=== PATIENT | female | born 1960 | race Caucasian/White ===

== ENCOUNTER 2016-12-17 12:00 | Emergency (ER) | payer OTHER ==
[~2016-12-17] VITALS: Ht 157.5 cm; Wt 136.3 kg
[~2016-12-17 12:00] MED LIST: ACCURETIC 201 TABLE1 PO; AMLODIPINE BESYL5 MG PO; BACTRIM,SEPT1 TABLET PO; CEFDINIR300 MG PO; CEPHALEXIN500 MG PO; CITALOPRAM; CITALOPRAM HBR20 MG PO; Colace PO; DEPAKOTE; DEPAKOTE ER500 MG PO; DEPAKOTE500 MG PO; DIVALPROEX SOD500 M1 PO; DUONEB 2.5-0.5 M3 ML AEROSOL; DYNAPEN 250 MG250 MG PO; Dulcolax PR; FUROSEMIDE20 MG PO; FUROSEMIDE40 MG PO; Folvite PO; HYDROCHLOROTHIA25 MG PO; HYDRODIURIL PO; IODOFLEX1 EACH TP; KEFLEX500 MG PO; LASIX; LASIX20 MG PO; LASIX40 MG PO; LIPITOR20 MG PO; LISINOPRIL10 MG PO; LISINOPRIL20 MG PO; LOPRESSOR50 MG PO; LOVENOX30 MG/0.3 SC; Levaquin PO; METFORMIN HCL500 MG PO; METOPROLOL; MS CONTIN,ORAMO15 M1 PO; Milk Of Magnesia,MOM PO; NOHOMEMEDS; NYSTATIN15 GM TP; OXYCODONE HCL10 MG PO; OXYCODONE HCL5 MG PO; OxyCONTIN PO; PROZAC40 MG PO; Percocet 5/325,Endoc PO; RISPERDAL; RISPERDAL0.5 MG PO; RISPERDAL1 MG PO; RISPERIDAL; RISPERIDONE0.5 MG PO; TOPROL XL100 MG PO; TOPROL XL6.25 MG PO; TRAMADOL HCL50 MG PO; TRAZODONE HCL50 MG PO; ZOLPIDEM TARTRAT5 MG PO; [UNRECOGNIZED DRUG - REMARK] PO
[2016-12-17 13:01] LABS: EOSINOPHIL (%) 2.4 % (0-5); EOSINOPHIL COUNT 0.2 K/uL (0-0.3); HEMATOCRIT 40.4 % (36.0-46.0); IMMATURE GRANULOCYTE (%) 0.4 % (0.0-0.7); LYMPHOCYTE COUNT 1.7 K/uL (1.0-2.8); MCH 26.5 PG (29.0-34.0); MCHC 31.4 G/DL (30.0-36.0); MCV 84.3 FL (83-99); MEAN PLAT.VOLUME 9.9 uM^3 (9.5-12.4); MONOCYTE COUNT 0.6 K/uL (0-0.8); PLATELET COUNT 292 K/uL (156-360); RBC DIS.WIDTH-CV 15.2 % (11.8-14.6); RBC DIS.WIDTH-SD 46.3 % (39-53); RED BLOOD COUNT 4.79 M/uL (3.80-5.20); WHITE BLOOD COUNT 7.5 K/uL (4.1-10.2)
[2016-12-17 13:10] LABS: CHLORIDE 103 mEq/L (99-109); POTASSIUM 4.2 mEq/L (3.7-5.4); SODIUM 141 mEq/L (136-147)
[2016-12-17 13:12] LABS: GLUCOSE 140 mg/dL (70-99)
[2016-12-17 13:13] LABS: ANION GAP 10 MEQ/L (2-14)
[2016-12-17 13:16] LABS: GFR ESTIMATE (CALCULATED) 41 mL/min/
[2016-12-17 13:17] LABS: UREA NITROGEN (BUN) 44 mg/dL (9-23)
[2016-12-17 13:23] LABS: TROP-I INTERPRETATION NEGATIVE; TROPONIN-I 0.02 ng/mL (0.0-0.30)
[2016-12-17 16:04] VITALS: BP 120/80
== END 2016-12-17 16:28 | disposition home or self-care (01) ==
LOC: EME 12:00
PROVIDERS: Emergency Medicine
DX: R00.2 Palpitations (principal); E86.0 Dehydration; R00.0 Tachycardia, unspecified; I10 Essential (primary) hypertension; E78.5 Hyperlipidemia, unspecified; I50.9 Heart failure, unspecified; E11.9 Type 2 diabetes mellitus without complications; Z79.84 Long term (current) use of oral hypoglycemic drugs
CPT/HCPCS: 71010; 71275; 80048; 84443; 84484; 85025; 85379; 93005; 99281; 99285

== ENCOUNTER 2017-06-03 13:54 | Emergency (ER) | payer OTHER ==
[~2017-06-03] VITALS: Ht 160 cm; Wt 137.0 kg
[2017-06-03 17:16] LABS: HEMATOCRIT 40.7 % (36.0-46.0); HEMOGLOBIN 13.1 G/DL (11.9-15.5); MCH 27.2 PG (29.0-34.0); MCHC 32.2 G/DL (30.0-36.0); MCV 84.6 FL (83-99); PLATELET COUNT 295 K/uL (156-360); RBC DIS.WIDTH-CV 14.9 % (11.8-14.6); RBC DIS.WIDTH-SD 46.2 % (39-53); RED BLOOD COUNT 4.81 M/uL (3.80-5.20); WHITE BLOOD COUNT 7.3 K/uL (4.1-10.2)
[2017-06-03 17:26] LABS: CHLORIDE 106 mEq/L (99-109); POTASSIUM 4.4 mEq/L (3.7-5.4); SODIUM 139 mEq/L (136-147)
[2017-06-03 17:28] LABS: GLUCOSE 195 mg/dL (70-99)
[2017-06-03 17:32] LABS: CREATININE 1.3 mg/dL (0.6-1.3); GFR ESTIMATE (CALCULATED) 45 mL/min/
[2017-06-03 17:33] LABS: UREA NITROGEN (BUN) 27 mg/dL (9-23)
[2017-06-03 19:35] VITALS: BP 173/114
== END 2017-06-03 19:45 | disposition home or self-care (01) ==
LOC: EME 13:54 → WOUND 13:54 → EME 19:45
PROVIDERS: Emergency Medicine; Surgery Plastic and Reconstructive Surgery
DX: I11.0 Hypertensive heart disease with heart failure (principal); I50.9 Heart failure, unspecified; E78.5 Hyperlipidemia, unspecified; E11.9 Type 2 diabetes mellitus without complications; I89.0 Lymphedema, not elsewhere classified; G47.30 Sleep apnea, unspecified; F31.9 Bipolar disorder, unspecified; F41.9 Anxiety disorder, unspecified; F32.9 Major depressive disorder, single episode, unspecified; Z79.84 Long term (current) use of oral hypoglycemic drugs
CPT/HCPCS: 80048; 82948; 85027; 99212; 99281; 99285

== ENCOUNTER 2017-06-03 13:54 | Emergency (ER) | payer OTHER ==
[~2017-06-03] VITALS: Ht 160 cm; Wt 137.0 kg
[2017-06-03 17:16] LABS: HEMATOCRIT 40.7 % (36.0-46.0); HEMOGLOBIN 13.1 G/DL (11.9-15.5); MCH 27.2 PG (29.0-34.0); MCHC 32.2 G/DL (30.0-36.0); MCV 84.6 FL (83-99); PLATELET COUNT 295 K/uL (156-360); RBC DIS.WIDTH-CV 14.9 % (11.8-14.6); RBC DIS.WIDTH-SD 46.2 % (39-53); RED BLOOD COUNT 4.81 M/uL (3.80-5.20); WHITE BLOOD COUNT 7.3 K/uL (4.1-10.2)
[2017-06-03 17:26] LABS: CHLORIDE 106 mEq/L (99-109); POTASSIUM 4.4 mEq/L (3.7-5.4); SODIUM 139 mEq/L (136-147)
[2017-06-03 17:28] LABS: GLUCOSE 195 mg/dL (70-99)
[2017-06-03 17:32] LABS: CREATININE 1.3 mg/dL (0.6-1.3); GFR ESTIMATE (CALCULATED) 45 mL/min/
[2017-06-03 17:33] LABS: UREA NITROGEN (BUN) 27 mg/dL (9-23)
== END 2017-06-03 19:45 | disposition home or self-care (01) ==
LOC: EME 13:54
PROVIDERS: Emergency Medicine; Surgery Plastic and Reconstructive Surgery
DX: I11.0 Hypertensive heart disease with heart failure (principal); I50.9 Heart failure, unspecified; E11.9 Type 2 diabetes mellitus without complications; Z79.84 Long term (current) use of oral hypoglycemic drugs; E78.5 Hyperlipidemia, unspecified; F32.9 Major depressive disorder, single episode, unspecified; F41.9 Anxiety disorder, unspecified; G47.30 Sleep apnea, unspecified
CPT/HCPCS: 80048; 82948; 85027; 99281; 99285

== ENCOUNTER 2017-09-18 15:15 | Emergency (ER) | payer OTHER ==
[~2017-09-18] VITALS: Ht 160 cm; Wt 154.4 kg
[2017-09-18 18:58] VITALS: BP 151/99
== END 2017-09-18 19:13 | disposition home or self-care (01) ==
LOC: EME 15:15
DX: R04.0 Epistaxis (principal); E11.9 Type 2 diabetes mellitus without complications; I11.0 Hypertensive heart disease with heart failure; I50.9 Heart failure, unspecified; G47.30 Sleep apnea, unspecified; E78.5 Hyperlipidemia, unspecified; F31.9 Bipolar disorder, unspecified; F41.9 Anxiety disorder, unspecified; F32.9 Major depressive disorder, single episode, unspecified; Z79.84 Long term (current) use of oral hypoglycemic drugs
CPT/HCPCS: 99281; 99284

== ENCOUNTER 2017-12-03 14:50 | Inpatient (IN) | payer OTHER ==
[~2017-12-03] VITALS: Ht 157.5 cm; Wt 136.2 kg
[~2017-12-03 14:50] MED LIST changes: +LOPRESSOR100 M1 PO; -TOPROL XL100 MG PO
[2017-12-03] MEDS ORDERED: ALEVE220 MG PO (16:31)
[2017-12-03] MEDS ORDERED: LEXAPRO10 MG PO (16:31)
[2017-12-03] MEDS ORDERED: TRAZODONE HCL50 MG PO (16:32)
[2017-12-03 16:40] LABS: BASOPHIL (%) 0.5 % (0-1); EOSINOPHIL (%) 3.7 % (0-5); EOSINOPHIL COUNT 0.3 K/uL (0-0.3); HEMATOCRIT 38.5 % (36.0-46.0); IMMATURE GRANULOCYTE (%) 0.5 % (0.0-0.7); LYMPHOCYTE (%) 14.3 % (15-42); LYMPHOCYTE COUNT 1.2 K/uL (1.0-2.8); MCH 25.9 PG (29.0-34.0); MCHC 31.2 G/DL (30.0-36.0); MONOCYTE (%) 9.2 % (3-12); MONOCYTE COUNT 0.8 K/uL (0-0.8); NEUTROPHIL (%) 71.8 % (45-76); NEUTROPHIL COUNT 6.3 K/uL (1.8-6.4); PLATELET COUNT 291 K/uL (156-360); RBC DIS.WIDTH-CV 16.3 % (11.8-14.6); RBC DIS.WIDTH-SD 49.1 % (39-53); RED BLOOD COUNT 4.64 M/uL (3.80-5.20); WHITE BLOOD COUNT 8.7 K/uL (4.1-10.2)
[2017-12-03 16:48] LABS: CHLORIDE 107 mEq/L (99-109); POTASSIUM 3.8 mEq/L (3.7-5.4); SODIUM 140 mEq/L (136-147)
[2017-12-03 16:50] LABS: GLUCOSE 127 mg/dL (70-99)
[2017-12-03 16:54] LABS: CREATININE 1.3 mg/dL (0.6-1.3); GFR ESTIMATE (CALCULATED) 45 mL/min/
[2017-12-03 16:55] LABS: UREA NITROGEN (BUN) 34 mg/dL (9-23)
[2017-12-03 20:34] VITALS: BP 186/87
[2017-12-04 00:09] VITALS: BP 115/62
[2017-12-04 04:17] VITALS: BP 118/60
[2017-12-04 08:00] VITALS: BP 96/56
[2017-12-04 09:47] LABS: HEMATOCRIT 33.5 % (36.0-46.0); HEMOGLOBIN 10.5 G/DL (11.9-15.5); MCH 26.2 PG (29.0-34.0); MCHC 31.3 G/DL (30.0-36.0); MCV 83.5 FL (83-99); PLATELET COUNT 259 K/uL (156-360); RBC DIS.WIDTH-CV 16.6 % (11.8-14.6); RBC DIS.WIDTH-SD 50.3 % (39-53); RED BLOOD COUNT 4.01 M/uL (3.80-5.20)
[2017-12-04 10:16] LABS: CHLORIDE 108 MEQ/L (99-109); CREATININE 1.3 MG/DL (0.6-1.3); GFR ESTIMATE (CALCULATED) 45 mL/min/; GLUCOSE 135 mg/dL (70-99); SODIUM 139 MEQ/L (136-147); UREA NITROGEN (BUN) 33 mg/dL (9-23)
[2017-12-04 10:20] LABS: POTASSIUM 4.7 MEQ/L (3.7-5.4)
[2017-12-04 10:42] VITALS: BP 103/58
[2017-12-04 19:47] VITALS: BP 116/65
[2017-12-04 23:43] VITALS: BP 108/53
[2017-12-05 08:06] VITALS: BP 107/53
[2017-12-05 09:18] LABS: HEMATOCRIT 32.7 % (36.0-46.0); HEMOGLOBIN 9.8 G/DL (11.9-15.5); MCH 25.5 PG (29.0-34.0); MCV 84.9 FL (83-99); PLATELET COUNT 241 K/uL (156-360); RBC DIS.WIDTH-CV 16.7 % (11.8-14.6); RBC DIS.WIDTH-SD 52.2 % (39-53); RED BLOOD COUNT 3.85 M/uL (3.80-5.20); WHITE BLOOD COUNT 7.1 K/uL (4.1-10.2)
[2017-12-05 10:34] LABS: CHLORIDE 109 MEQ/L (99-109); CREATININE 1.7 MG/DL (0.6-1.3); GFR ESTIMATE (CALCULATED) 33 mL/min/; GLUCOSE 142 mg/dL (70-99); POTASSIUM 4.8 MEQ/L (3.7-5.4); SODIUM 139 MEQ/L (136-147); UREA NITROGEN (BUN) 42 mg/dL (9-23)
[2017-12-05 15:56] VITALS: BP 97/52
[2017-12-06] VITALS: BP 115/61
[2017-12-06 06:42] LABS: HEMATOCRIT 33.1 % (36.0-46.0); MCH 25.6 PG (29.0-34.0); MCHC 30.2 G/DL (30.0-36.0); MCV 84.9 FL (83-99); PLATELET COUNT 258 K/uL (156-360); RBC DIS.WIDTH-CV 16.9 % (11.8-14.6); RBC DIS.WIDTH-SD 52.6 % (39-53); WHITE BLOOD COUNT 7.2 K/uL (4.1-10.2)
[2017-12-06 07:06] LABS: CHLORIDE 110 MEQ/L (99-109); CREATININE 1.7 MG/DL (0.6-1.3); GFR ESTIMATE (CALCULATED) 33 mL/min/; GLUCOSE 116 mg/dL (70-99); POTASSIUM 5.2 MEQ/L (3.7-5.4); SODIUM 141 MEQ/L (136-147); UREA NITROGEN (BUN) 40 mg/dL (9-23)
[2017-12-06 07:34] VITALS: BP 123/71
[2017-12-06 15:59] VITALS: BP 106/58
[2017-12-06 18:20] VITALS: BP 124/58
[2017-12-07 00:20] VITALS: BP 127/68
[2017-12-07 03:42] VITALS: BP 176/102
[2017-12-07 03:45] VITALS: BP 155/89
[2017-12-07 06:31] LABS: CHLORIDE 107 MEQ/L (99-109); CREATININE 1.4 MG/DL (0.6-1.3); GFR ESTIMATE (CALCULATED) 41 mL/min/; GLUCOSE 130 mg/dL (70-99); SODIUM 141 MEQ/L (136-147); UREA NITROGEN (BUN) 31 mg/dL (9-23)
[2017-12-07 07:30] VITALS: BP 145/87
[2017-12-07 15:15] VITALS: BP 125/76
[2017-12-08 00:01] VITALS: BP 118/61
[2017-12-08 07:26] VITALS: BP 122/74
[2017-12-08 16:23] VITALS: BP 128/68
== END 2017-12-08 17:19 | DRG 603 ==
LOC: EME 14:50 → 3EAST 18:14 → EDOF 18:14 → ENRESERV 18:20 → 3EAST 20:13 → ENRESERV 12-06 15:44 → 5EAST 12-06 17:58
PROVIDERS: Hospitalist; Internal Medicine; Nurse Practitioner Family
DX: L03.115 Cellulitis of right lower limb (principal); L03.116 Cellulitis of left lower limb; E11.622 Type 2 diabetes mellitus with other skin ulcer; L97.829 Non-pressure chronic ulcer of other part of left lower leg with unspecified severity; L97.819 Non-pressure chronic ulcer of other part of right lower leg with unspecified severity; I89.0 Lymphedema, not elsewhere classified; E11.51 Type 2 diabetes mellitus with diabetic peripheral angiopathy without gangrene; I87.2 Venous insufficiency (chronic) (peripheral); I87.8 Other specified disorders of veins; E11.65 Type 2 diabetes mellitus with hyperglycemia; E87.2 Acidosis; R79.89 Other specified abnormal findings of blood chemistry; T50.8X5A Adverse effect of diagnostic agents, initial encounter; E86.0 Dehydration; I11.0 Hypertensive heart disease with heart failure; I50.9 Heart failure, unspecified; I27.20 Pulmonary hypertension, unspecified; R09.02 Hypoxemia; G47.33 Obstructive sleep apnea (adult) (pediatric); E66.01 Morbid (severe) obesity due to excess calories; Z68.43 Body mass index [BMI] 50.0-59.9, adult; E78.5 Hyperlipidemia, unspecified; I25.10 Atherosclerotic heart disease of native coronary artery without angina pectoris; F41.8 Other specified anxiety disorders; Z79.84 Long term (current) use of oral hypoglycemic drugs
CPT/HCPCS: 71045; 73701; 80048; 82948; 83605; 85025; 85027; 87040; 87070; 87075; 87076; 87077; 87185; 87205; 94640; 94799; 99281; 99285; A6260; J0690; J1644; J1815; J1940; J2060; J2543; J3010; J3370; J7030; J7040; J7050